=== PATIENT | male | born 1995 | race Caucasian/White ===

== ENCOUNTER 2018-06-13 15:09 | Emergency (ER) | payer MEDICAID, OTHER ==
[2018-06-13] MEDS: ACETAMINOPHEN 325 MG TAB PO (18:02)
[2018-06-13] MEDS: IBUPROFEN 200 MG TAB PO (18:02)
== END 2018-06-13 18:36 | disposition home or self-care (01) ==
LOC: FTE 15:09
DX: S62.316A Displaced fracture of base of fifth metacarpal bone, right hand, initial encounter for closed fracture (principal); W22.01XA Walked into wall, initial encounter; Y92.9 Unspecified place or not applicable
CPT/HCPCS: 29125; 73110-RT; 73130-RT; 99283-25